=== PATIENT | female | born 1935 | race Caucasian/White ===

== ENCOUNTER 2018-02-16 19:40 | Emergency (ER) | payer MEDICARE ==
[~2018-02-16] VITALS: Ht 165.1 cm; Wt 61.2 kg
--- NOTE | 2018-02-16 20:15 | NUR ---
Pt presented to ED with abd pain that felt like a tight band radiating to the back. Ambulating in with steady gait, urine sample obtained. Resp. even and unlabored. Pt on the monitor awaiting evaluation by MD. Pain scale 2/10, 10/10 with movement.
--- NOTE | 2018-02-16 20:41 | NUR ---
PT returned from CT.
--- NOTE | 2018-02-16 21:49 | NUR ---
Patient discharged to home in stable condition. Written and verbal after care instructions given. Patient verbalizes understanding of instruction and Rx. PT ambulated out with slight limp due to hip surgery in the past. VSS
[2018-02-16 21:53] VITALS: BP 171/88
== END 2018-02-16 21:55 | disposition home or self-care (01) ==
LOC: ER 19:45
DX: M54.5 Low back pain (principal); I10 Essential (primary) hypertension; E78.00 Pure hypercholesterolemia, unspecified; G47.00 Insomnia, unspecified; Z98.890 Other specified postprocedural states
CPT/HCPCS: 72131; 99284; A4606; Z7610

== ENCOUNTER 2020-04-17 20:08 | Emergency (ER) | payer BC, MEDICARE ==
[~2020-04-17] VITALS: Ht 162.6 cm; Wt 68.0 kg
--- NOTE | 2020-04-17 20:08 | NUR ---
[id number] FROM HOME FOR GEN WEAKNESS, STATES WOKE UP TODAY "FEELING DIFF ERENT" SPEAKING FULL SENTENCES, DENIES ANY EPISODE OF SYNCOPE, PT AAOX4, -SOB, NAD NOTED, VSS ,PENDING MD RODRIGUEZ
[2020-04-17 21:00] LABS: BASOPHILS # (AUTO) 0.1 /CMM (0.0-0.2); BASOPHILS % (AUTO) 0.7 % (0.0-2.0); EOSINOPHILS % (AUTO) 2.2 % (0.0-6.0); HEMATOCRIT 41 % (33-45); HEMOGLOBIN 13.8 g/dL (11.5-14.8); LYMPHOCYTES # (AUTO) 2.1 /CMM (0.8-4.8); LYMPHOCYTES % (AUTO) 25.1 % (20.0-44.0); MEAN CORPUSCULAR HGB CONC 34 g/dl (31.0-36.0); MEAN CORPUSCULAR VOLUME 90 fL (82-100); MONOCYTES # (AUTO) 0.6 /CMM (0.1-1.30); MONOCYTES % (AUTO) 7.2 % (2.0-12.0); NEUTROPHILS # (AUTO) 5.4 /CMM (1.8-8.9); NEUTROPHILS % (AUTO) 64.8 % (43.0-81.0); PLATELET COUNT (AUTO) 240 /CMM (150-450); RED BLOOD CELL COUNT(AUTO) 4.58 MIL/uL (4.0-5.2); WHITE BLOOD COUNT (AUTO) 8.3 K/uL (4.3-11.0)
--- NOTE | 2020-04-17 21:09 | NUR ---
Pt to CT via alan
--- NOTE | 2020-04-17 21:20 | NUR ---
Pt return from Ct.
[2020-04-17 21:51] LABS: CALCIUM, SERUM 9.7 mg/dL (8.5-10.1); CREATININE 0.8 mg/dL (0.6-1.3)
--- NOTE | 2020-04-17 22:41 | NUR ---
Patient discharged to home in stable condition. Written and verbal after care instructions given. Patient verbalizes understanding of instruction.
[2020-04-17 22:43] VITALS: BP 160/91
== END 2020-04-17 22:43 | disposition home or self-care (01) ==
LOC: ER 20:10
DX: R53.83 Other fatigue (principal); R94.31 Abnormal electrocardiogram [ECG] [EKG]; R41.82 Altered mental status, unspecified; I10 Essential (primary) hypertension; G47.00 Insomnia, unspecified; E78.00 Pure hypercholesterolemia, unspecified; Z98.890 Other specified postprocedural states
CPT/HCPCS: 36415; 70450-TC; 80048-TC; 85025-TC